=== PATIENT | female | born 1985 | race Caucasian/White ===

== ENCOUNTER 2017-05-14 16:25 | Emergency (ER) | payer MEDICAID ==
[~2017-05-14] VITALS: Ht 134.6 cm; Wt 67.1 kg
[2017-05-14 16:58] VITALS: Ht 134.6 cm; Wt 67.1 kg
[2017-05-14 18:19] VITALS: BP 115/76
== END 2017-05-14 18:20 | disposition home or self-care (01) ==
LOC: ED 16:25
DX: J01.90 Acute sinusitis, unspecified (principal); J45.909 Unspecified asthma, uncomplicated; J02.9 Acute pharyngitis, unspecified; Z90.49 Acquired absence of other specified parts of digestive tract; Z88.8 Allergy status to other drugs, medicaments and biological substances
CPT/HCPCS: J0696

== ENCOUNTER 2017-11-15 16:30 | Emergency (ER) | payer OTHER ==
[~2017-11-15] VITALS: Ht 149.9 cm; Wt 73.9 kg
[2017-11-15 16:48] VITALS: BP 110/62; Ht 149.9 cm; Wt 73.9 kg
== END 2017-11-15 18:41 | disposition home or self-care (01) ==
LOC: ED 16:30
DX: N39.0 Urinary tract infection, site not specified (principal); R53.1 Weakness; Z88.8 Allergy status to other drugs, medicaments and biological substances

== ENCOUNTER 2017-12-22 10:14 | Emergency (ER) | payer OTHER ==
[~2017-12-22] VITALS: Ht 134.6 cm; Wt 72.2 kg
[2017-12-22 10:19] VITALS: Ht 134.6 cm; Wt 72.2 kg
[2017-12-22 11:00] VITALS: BP 120/69
== END 2017-12-22 11:00 | disposition home or self-care (01) ==
LOC: ED 10:14
DX: J32.9 Chronic sinusitis, unspecified (principal); Z88.8 Allergy status to other drugs, medicaments and biological substances

== ENCOUNTER 2018-05-08 15:52 | Emergency (ER) | payer OTHER ==
[~2018-05-08] VITALS: Ht 162.6 cm; Wt 68.5 kg
[2018-05-08 16:13] VITALS: Ht 162.6 cm; Wt 68.5 kg
[2018-05-08 18:08] LABS: UA SPECIFIC GRAVITY 1.025 (1.005-1.035); microscopic required? YES; urine erythrocyte 3+ (NEGATIVE)
[2018-05-08 19:14] VITALS: BP 120/67
== END 2018-05-08 19:14 | disposition home or self-care (01) ==
LOC: ED 15:52
PROVIDERS: Emergency Medicine
DX: N39.0 Urinary tract infection, site not specified (principal); N93.8 Other specified abnormal uterine and vaginal bleeding; Z88.8 Allergy status to other drugs, medicaments and biological substances; Z90.49 Acquired absence of other specified parts of digestive tract
CPT/HCPCS: J1885; Q0092

== ENCOUNTER 2019-02-20 21:51 | Emergency (ER) | payer OTHER | END 2019-02-20 22:10 | disposition left against medical advice (07) | LOC: ED 21:51 | DX: Z53.21 Procedure and treatment not carried out due to patient leaving prior to being seen by health care provider (principal) ==

== ENCOUNTER 2019-05-15 15:08 | Emergency (ER) | payer MEDICAID ==
[~2019-05-15] VITALS: Ht 134.6 cm; Wt 68.5 kg
[2019-05-15 15:18] VITALS: Ht 134.6 cm; Wt 68.5 kg
[2019-05-15 16:51] VITALS: BP 106/70
== END 2019-05-15 16:51 | disposition home or self-care (01) ==
LOC: ED 15:08
DX: J40 Bronchitis, not specified as acute or chronic (principal); M54.9 Dorsalgia, unspecified; Z88.8 Allergy status to other drugs, medicaments and biological substances
CPT/HCPCS: 87804; J1100

== ENCOUNTER 2019-06-30 09:50 | Emergency (ER) | payer OTHER ==
[~2019-06-30] VITALS: Ht 134.6 cm; Wt 67.6 kg
[2019-06-30 09:57] VITALS: Ht 134.6 cm; Wt 67.6 kg
[2019-06-30 10:24] LABS: CALCIUM 8.3 mg/dL (8.5-10.1); CARBON DIOXIDE 25.7 mmol/L (21-32); CHLORIDE SERUM 104 mmol/L (98-107); CREATININE SERUM 0.5 mg/dL (0.6-1.0); GFR1 > 60 mL/min; GLUCOSE SERUM 99 mg/dL (74-106); POTASSIUM SERUM 3.1 mmol/L (3.5-5.1); SODIUM SERUM 138 mmol/L (136-145)
[2019-06-30 10:29] LABS: ALBUMIN 3.9 g/dL (3.4-5.0); ALKALINE PHOSPHATASE 67 U/L (46-116); ALT/SGPT 34 U/L (14-59); AST/SGOT 17 U/L (15-37); BILIRUBIN TOTAL 0.63 mg/dL (0.20-1.00); TOTAL PROTEIN, SERUM 7.6 g/dL (6.4-8.2)
[2019-06-30 10:41] LABS: BASOPHIL % 0.4 % (0-2); PLATELET COUNT 295 x10^3mcL (130-400); RED CELL DISTRIBUTION WIDTH 13.4 % (11.5-14.5)
[2019-06-30 13:31] VITALS: BP 108/83
== END 2019-06-30 13:31 | disposition home or self-care (01) ==
LOC: ED 09:50
DX: K52.9 Noninfective gastroenteritis and colitis, unspecified (principal); Z88.8 Allergy status to other drugs, medicaments and biological substances
CPT/HCPCS: J1885; J2405; J7030

== ENCOUNTER 2019-11-29 18:24 | Emergency (ER) | payer OTHER ==
[~2019-11-29] VITALS: Ht 134.6 cm; Wt 69.9 kg
[2019-11-29 18:43] VITALS: Ht 134.6 cm; Wt 69.9 kg
[2019-11-29 19:11] LABS: BASOPHIL % 1.1 % (0-2); PLATELET COUNT 287 x10^3mcL (130-400); RED CELL DISTRIBUTION WIDTH 12.8 % (11.5-14.5)
[2019-11-29 19:24] LABS: CALCIUM 8.4 mg/dL (8.5-10.1); CARBON DIOXIDE 29.3 mmol/L (21-32); CHLORIDE SERUM 102 mmol/L (98-107); CREATININE SERUM 0.6 mg/dL (0.6-1.0); GFR1 > 60 mL/min; GLUCOSE SERUM 91 mg/dL (74-106); POTASSIUM SERUM 3.1 mmol/L (3.5-5.1); SODIUM SERUM 138 mmol/L (136-145)
[2019-11-29 19:29] LABS: ALBUMIN 4.1 g/dL (3.4-5.0); ALKALINE PHOSPHATASE 56 U/L (46-116); ALT/SGPT 55 U/L (14-59); AST/SGOT 24 U/L (15-37); BILIRUBIN TOTAL 0.5 mg/dL (0.20-1.00); LIPASE 113 IU/L (73-393); TOTAL PROTEIN, SERUM 7.5 g/dL (6.4-8.2)
[2019-11-29 21:55] VITALS: BP 114/73
== END 2019-11-29 21:55 | disposition home or self-care (01) ==
LOC: ED 18:24
PROVIDERS: Emergency Medicine
DX: B34.9 Viral infection, unspecified (principal); Z20.828 Contact with and (suspected) exposure to other viral communicable diseases
CPT/HCPCS: J2405; Q0092; U0003-CS